=== PATIENT | male | born 1990 | race Caucasian/White ===

== ENCOUNTER 2020-01-20 18:45 | Emergency (ER) | payer OTHER ==
[2020-01-20 18:55] VITALS: BP 157/107
--- NOTE | 2020-01-20 19:20 | ED Physician Documentation ---
PD HPI HEENT - Stated complaint Stated Complaint: FEVER, SOA, COUGH - Chief complaint Chief Complaint: Resp - History obtained from History obtained from: Patient (Previously healthy 29-year-old gentleman who is active duty in the [place] has had 2 days of sore throat, a low-grade fever up to 100.0, and mild cough. He was short of breath but is not now. [place] has [place] Was referred here for testing by his command.) Review of Systems Constitutional: reports: Fever, Chills, Myalgias. denies: Fatigue Nose: denies: Rhinorrhea / runny nose Throat: reports: Sore throat Respiratory: reports: Cough. denies: Dyspnea (Not anymore) PD PAST MEDICAL HISTORY - Allergies Allergies/Adverse Reactions: Allergies Allergy/AdvReac Type Severity Reaction Status Date / Time No Known Drug Allergies Allergy Verified 01/20/20 18:49 PD ED PE NORMAL - Vitals Vital signs reviewed: Yes - General General: Alert and oriented X 3, No acute distress - HEENT HEENT: Pharynx benign - Cardiac Cardiac: RRR, No murmur - Respiratory Respiratory: No respiratory distress, Clear bilaterally - Abdomen Abdomen: Non tender Results - Vitals Vitals: Vital Signs - 24 hr 01/20/20 18:49 Temperature 36.9 C Heart Rate 85 Respiratory 16 Rate Blood Pressure 157/107 H O2 Saturation 98 Oxygen O2 Source Room air PD MEDICAL DECISION MAKING - ED course ED course: This is a healthy 29-year-old gentleman presents with a viral syndrome. Coronavirus testing is sent. Lungs are clear, I do not see the need for an x- ray at this juncture. Departure - Departure Disposition: 01 Home, Self Care Clinical Impression: Viral syndrome Condition: Good Record reviewed to determine appropriate education?: Yes Instructions: ED Viral Syndrome Comments: We are sending a coronavirus test, as discussed with the patient, this test has significant limitations including a poor sensitivity. As such he should follow home isolation guidelines until clear as per CDC recommendations which are available at: https://www.cdc.gov/coronavirus/2019-ncov/community/tveyfqfh-xvujshpl-mrqwxvrj.h tml and https://www.cdc.gov/coronavirus/2019-ncov/hcp/iubugbwatkw-ui-hqru-patients.html
== END 2020-01-20 19:35 | disposition home or self-care (01) ==
LOC: ED 18:45
DX: B34.9 Viral infection, unspecified (principal); Z20.828 Contact with and (suspected) exposure to other viral communicable diseases
CPT/HCPCS: 81599; 99283; 99284